=== PATIENT | male | born 1980 | race Caucasian/White ===

== ENCOUNTER 2024-10-22 14:24 | Emergency (ER) | payer SELFPAY ==
--- NOTE | 2024-10-22 14:42 | PD.EDMEDCL ---
ED Medical Clearance RME/HPI General Stated complaint: MEDICAL CLEARANCE Time Seen by Provider: 10/22/24 14:32 Arrival date/time: 10/22/24 14:24 RME / HPI RME / HPI Narrative: 44 year old male presented to the ED BIB [facility] for medical clearance prior to incarceration. Upon arrival, the patient reported acute onset shortness of breath, chest pain radiating to the left arm and left side of the neck, and [id number] back pain. Symptoms began approximately one hour prior to arrival. The patient described the chest discomfort as pressure-like and associated with a sensation of syncope stating, I feel like I'm going to pass out. He also complains of associated chills, diaphoresis, and a non-productive cough. He denied any subjective fever. 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 He denies recent trauma, similar previous episodes, or known cardiac history. Related Information Allergies Allergy/AdvReac Type Severity Reaction Status Date / Time meperidine (From Demerol) Allergy Verified 10/22/24 16:55 Review of Systems Review of Systems Narrative Review of Systems: GEN: No fever, + chills, no weight loss EYES: No discharge, no visual changes, no pain HEENT: No ear pain, no congestion, no sore throat PULM: + shortness of breath, +cough, no congestion CV: + chest pain, no palpitations GI: No nausea, no vomiting, no diarrhea, no pain, no constipation : No frequency, no urgency, no dysuria MUSC/SKEL: No joint pain, + back pain SKIN: No rash PSYCH: No hallucinations, no depression HEME/LYMPH: No easy bleeding or bruising tendencies NEURO: No weakness, no headache ED Exam Narrative Physical exam: GENERAL APPEARANCE: Unkempt, answering questions appropriately, oriented x 4, well-developed, well-nourished, no acute distress HEENT: Normocephalic, atraumatic; pupils equal, round, reactive to light; EOMI; mucous membranes pink, moist; oropharynx clear NECK: Supple LUNGS: CTABL; no wheezes, no rales, no rhonchi HEART: Regular rate, regular rhythm; normal S1, S2; no murmurs ABDOMEN: non distended; normal BS; soft, no tenderness, no guarding, no rebound; no masses, no organomegaly, no hernia BACK: no CVA tenderness EXTREMITIES: Strength 3/5 bilateral upper extremities, old well healed surgical scar on the left forearm. atraumatic; no edema NEUROLOGIC: Awake, alert, answering questions appropriately, oriented x4; cranial nerves II-XII grossly intact; recenterer strength 3/5 bilateral upper extremities PSYCHIATRIC: appropriate mood and affect SKIN: warm, dry, normal color; no rashes Course Quality Measures none Orders Category Date Time Status EKG (ED ONLY) *Do not use* NOW Care 10/22/24 15:04 Completed EKG (ED Only) Stat Exams 10/22/24 15:04 Draft CBC Stat Lab 10/22/24 15:26 Completed CMP [Comprehensive Metabolic Panel] Stat Lab 10/22/24 15: Completed Troponin I Stat Lab 10/22/24 15:26 Completed Acetaminophen Tab [Tylenol ES Tab] Med 10/22/24 16:48 Discontinued 1,000 mg PO X1 ONE Vital Signs Vital signs: Vital Signs Temperature 98.6 F 10/22/24 15:12 Pulse Rate 86 10/22/24 15:12 Respiratory Rate 20 10/22/24 15:12 Blood Pressure 181/99 H 10/22/24 15:12 Pulse Oximetry (%) 100 10/22/24 15:12 Oxygen Delivery Method Room Air 10/22/24 15:12 Pulse ox is 100% on room air which is adequate. Medical Clearance MDM Narrative MDM Narrative:: Dina Fairbanks am scribing for and in the presence of Dr. Del Real. Patient data External records reviewed:: [facility] previous records (Per EMR review, no previous ED visits ) Clinical information provided by:: patient and law enforcement Social determinants that could affect healthcare access:: none Patient has the following chronic illnesses:: Hx of shoulder surgery How is presenting disease/condition affected by chronic disease/condition?: exacerbated by Evaluation data The following diagnostics were reviewed and interpreted by me:: lab results and EKG tracing(s) Lab and/or radiology exams considered but not ordered:: None Interpretation Summary: EKG interpreted by me: sinus rhythm, rate 92, normal axis, normal intervals, no evidence of acute ischemia Medications / Prescriptions Medications or Prescriptions considered but not ordered:: None Medication administrations:: Medication Administration History Discontinued Medications Acetaminophen (Acetaminophen 500 Mg Tablet) 1,000 mg PO X1 ONE Stop: 10/22/24 16:49 See above Consultations Consultation(s) initiated? (list below): No Diagnosis Medical Clearance Differential Diagnosis: other (NV, angina, sepsis, viral illness, musculoskeletal pain ) Most likely diagnosis given after review of the tests above:: Chest palacio elevated blood pressure chronic upper extremity pain Admission Indicated Admission indicated?: not indicated Admission Request Was there a request for admission?: No Disposition Plan Disposition Plan: Discharge Discharge Attestation Discharge Attestation: The patient and all family members were given an opportunity to ask questions and understood the discharge instructions. Discharge instructions specifically effects, indications for sooner follow up or return to the emergency department, and the expected course of current diagnosis. Patient condition: Stable Discharge Plan Plan Patient Disposition: Senior Living/Court/Law Discharge Disposition comment: Okay to book Prescriptions/Referrals Referrals: No Primary/Family,Physician [Primary Care Provider] - In 1 week Problem List Clinical Impression: Chest pain, Elevated blood pressure reading, Chronic upper extremity pain, Chronic neck pain Patient/Caregiver Discharge Instructions Education Materials: ED Chest Pain, Uncertain Cause, ED Back and Neck Pain, General Print Language: [place]
--- NOTE | 2024-10-22 15:04 | EKG_ITS ---
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
[2024-10-22 15:12] VITALS: BP 181/106; BP 181/99; PULSE 86; RESP 20; TEMP 37; O2SAT 100
[2024-10-22 15:33] LABS: Basophils % (Auto) 0 % (0-2.5); Eosinophils # (Auto) 0.1 Thou/mm3 (0.0-0.5); Eosinophils % (Auto) 2 % (0-10); Hematocrit 39.7 % (41.0-53.0); Hemoglobin 13.7 g/dL (13.5-16.0); Immature Granulocytes % (Auto) 0 % (0-0); Immature Granulocytes Auto 0.02 Thou/mm3 (0.00-0.00); Lymphocytes # (Auto) 1.2 Thou/mm3 (1.0-4.8); Lymphocytes % (Auto) 18 % (10-50); Mean Corpuscular HGB Conc 34.5 g/dl (31.0-37.0); Mean Corpuscular Hemoglobin 31.4 pg (25.0-35.0); Mean Corpuscular Volume 91 fL (80-100); Monocytes # (Auto) 0.5 Thou/mm3 (0.0-0.8); Monocytes % (Auto) 8 % (0-12); Neutrophils # (Auto) 4.6 Thou/mm3 (1.8-7.7); Neutrophils % (Auto) 72 % (37-80); Nucleated Red Blood Cell % 0 /100 WBC (0); Platelet Count 141 Thou/mm3 (140-440); RDW Standard Deviation 39.8 fL (35.1-43.9); Red Blood Count 4.36 Miln/mm3 (4.50-5.90); White Blood Count 6.5 Thou/mm3 (3.8-10.6)
[2024-10-22 15:54] LABS: Alanine Aminotransferase 36 U/L (10-49); Albumin, Serum 4.1 gm/dL (3.5-5.0); Albumin/Globulin Ratio 1.8 (1.2-2.2); Alkaline Phosphatase 102 U/L (46-116); Anion Gap 10 (7-16); Aspartate Amino Transferase 28 U/L (0-34); BUN/Creatinine Ratio 17 Ratio (12-20); Bilirubin,Total 0.4 mg/dL (0.3-1.2); Blood Urea Nitrogen 12 mg/dL (9-23); Calcium 8.9 mg/dL (8.3-10.6); Calcium (Corrected) 8.9 mg/dL (8.5-10.1); Carbon Dioxide 25.6 mMol/L (20.0-31.0); Chloride 106 mMol/L (98-107); Creatinine (Component) 0.7 mg/dL (0.6-1.3); Globulin 2.3 gm/dL (2.3-3.5); Glucose 110 mg/dL (74-106); Osmolality,Calculated 283 (275-295); Sodium 142 mMol/L (136-145); Total Protein 6.4 gm/dL (5.7-8.2); Troponin I < 0.020 ng/mL (0.0-0.045); eGFR > 60 See Note
[2024-10-22 16:20] VITALS: BP 149/98; PULSE 86; RESP 20; O2SAT 98
== END 2024-10-22 17:02 ==
PROVIDERS: Emergency Provider Emergency Medicine
DX: Z02.89 Encounter for other administrative examinations (principal); R07.9 Chest pain, unspecified; M54.2 Cervicalgia; G89.29 Other chronic pain; R03.0 Elevated blood-pressure reading, without diagnosis of hypertension
CPT/HCPCS: 36415; 80053; 84484; 85025; 93005; 99283

== ENCOUNTER 2024-11-09 12:50 | Emergency (ER) | payer OTHER, SELFPAY ==
[2024-11-09 12:53] VITALS: BMI 23.6
[2024-11-09 12:55] VITALS: BP 163/93; PULSE 53; RESP 20; TEMP 36.5; O2SAT 99
[2024-11-09 13:50] VITALS: BP 160/87; PULSE 64; RESP 18; TEMP 36.6; O2SAT 100
--- NOTE | 2024-11-09 13:56 | XR_ITS ---
Examination: CT abdomen and pelvis without contrast. Coronal 3-D reconstructions. Sagittal 2-D reconstructions. Date and time of exam:November 09, 2024 1406 hours INDICATIONS: Diffuse abdominal pain beginning 2 hours ago CTDI: vol (mGy): 7.18 DLP: (mGycm): 390 Technique: Axial images of the abdomen have been obtained, 3 mm slice thickness Intravenous contrast material has not been administered. Low dose protocols were performed. One or more of the following dose reduction techniques were used; automated exposure control, adjustment of the mA and/or KV according to patient size, use of iterative reconstruction technique. Findings: 3 mm pulmonary nodule in left lower lobe No pneumonia or pulmonary edema Cystic mass tail of the pancreas, 8 cm, most consistent with pancreatic pseudocyst No current pancreatitis Negative for gallstones No adrenal mass No renal or ureteral calculi, no hydronephrosis Normal appendix No prostatic megaly Urinary bladder wall thickening up to 4 mm Moderate disc narrowing L3-L4 Mild right and moderate left hip osteoarthritis , Partial visualization right intramedullary femoral gurdeep IMPRESSION: 3 mm pulmonary nodule left lower lobe, consider PA and lateral chest follow-up Cystic mass tail of the pancreas, 8 cm, most consistent with pancreatic pseudocyst No current pancreatitis Normal appendix No bowel obstruction or diverticulitis Moderate degenerative disc disease L3-L4
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
[2024-11-09 14:39] LABS: Basophils % (Auto) 0 % (0-2.5); Eosinophils % (Auto) 0 % (0-10); Hematocrit 42.2 % (41.0-53.0); Immature Granulocytes % (Auto) 1 % (0-0); Immature Granulocytes Auto 0.07 Thou/mm3 (0.00-0.00); Lymphocytes # (Auto) 1.2 Thou/mm3 (1.0-4.8); Lymphocytes % (Auto) 9 % (10-50); Mean Corpuscular HGB Conc 35.5 g/dl (31.0-37.0); Mean Corpuscular Hemoglobin 30.7 pg (25.0-35.0); Mean Corpuscular Volume 87 fL (80-100); Monocytes # (Auto) 0.8 Thou/mm3 (0.0-0.8); Monocytes % (Auto) 6 % (0-12); Neutrophils # (Auto) 12.4 Thou/mm3 (1.8-7.7); Neutrophils % (Auto) 85 % (37-80); Nucleated Red Blood Cell % 0 /100 WBC (0); Platelet Count 211 Thou/mm3 (140-440); Red Blood Count 4.88 Miln/mm3 (4.50-5.90); White Blood Count 14.5 Thou/mm3 (3.8-10.6)
[2024-11-09 14:58] LABS: Alanine Aminotransferase 34 U/L (10-49); Albumin, Serum 4.5 gm/dL (3.5-5.0); Albumin/Globulin Ratio 2.4 (1.2-2.2); Alkaline Phosphatase 88 U/L (46-116); Anion Gap 11 (7-16); Aspartate Amino Transferase 19 U/L (0-34); BUN/Creatinine Ratio 15 Ratio (12-20); Bilirubin,Total 0.8 mg/dL (0.3-1.2); Blood Urea Nitrogen 12 mg/dL (9-23); Calcium 9.1 mg/dL (8.3-10.6); Calcium (Corrected) 9.1 mg/dL (8.5-10.1); Carbon Dioxide 28.3 mMol/L (20.0-31.0); Chloride 104 mMol/L (98-107); Creatinine (Component) 0.8 mg/dL (0.6-1.3); Estimated Creatinine Clearance 120.3 mL/min (>60); Globulin 1.9 gm/dL (2.3-3.5); Glucose 114 mg/dL (74-106); Lipase 64 U/L (12-53); Osmolality,Calculated 285 (275-295); Potassium 3.7 mMol/L (3.4-5.1); Sodium 143 mMol/L (136-145); Total Protein 6.4 gm/dL (5.7-8.2); eGFR > 60 See Note
[2024-11-09 16:04] VITALS: BP 141/93; PULSE 73; RESP 18; TEMP 36.5; O2SAT 98
[2024-11-09 17:48] VITALS: BP 153/93; PULSE 84; RESP 16; TEMP 36.6; O2SAT 99
== END 2024-11-09 17:48 ==
PROVIDERS: Emergency Provider Emergency Medicine
DX: K86.3 Pseudocyst of pancreas (principal); M51.369 Other intervertebral disc degeneration, lumbar region without mention of lumbar back pain or lower extremity pain
CPT/HCPCS: 36415; 74176; 80053; 83690; 85025; 99284

== ENCOUNTER 2024-12-24 18:51 | Emergency (ER) | payer MEDICAID, SELFPAY ==
[2024-12-24 19:36] VITALS: BP 154/86; PULSE 103; RESP 20; TEMP 37; O2SAT 96; BMI 28.4
[2024-12-24] MEDS: DIAZEPAM 5 MG TABLET 10 MG PO (20:13)
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
== END 2024-12-24 20:30 | disposition home or self-care (01) ==
LOC: SERX 20:16
PROVIDERS: Emergency Provider Emergency Medicine
DX: F19.239 Other psychoactive substance dependence with withdrawal, unspecified (principal); F41.9 Anxiety disorder, unspecified
CPT/HCPCS: 99283; A9270

== ENCOUNTER 2025-02-18 16:46 | Emergency (ER) | payer MEDICAID, SELFPAY ==
[2025-02-18 16:46] VITALS: BMI 24.3
[2025-02-18 17:36] VITALS: BP 110/65; PULSE 93; RESP 18; TEMP 36.8; O2SAT 98
--- NOTE | 2025-02-18 17:47 | XR_ITS ---
Examination: CT lumbar spine, without contrast. 2-D sagittal reconstructions. 2-D coronal reconstructions. 3-D reconstructions. Date and time of exam:February 18, 2025, 1822 hrs. Indications: Back pain years, worse today. CTDI: vol (mGy):19.8. DLP: (mGycm):605. Technique: Multiple 1.25 mm axial sections of the lumbar spine without intravenous have been obtained. 2-D sagittal and coronal reconstructions have been obtained. 3-D reconstructions have been obtained. Low dose protocols were performed. One or more of the following dose reduction techniques were used; automated exposure control, adjustment of the mA and/or KV according to patient size, use of iterative reconstruction technique. Findings: Adequate alignment lumbar vertebral bodies on the lateral view. No lumbar fracture. No spondylolisthesis. Advanced disc narrowing L3-L4. No spondylolisthesis. L5-S1 no disc protrusion L4-L5 no disc protrusion. L3-L4 moderate to severe overall spinal stenosis, axial image 71, 3 mm central lumbar disc bulge, facet arthropathy and thickening of ligamentum flavum with moderate left mild right L3 ganglionic compression Impression: No acute lumbar fracture. Advanced degenerative disc disease L3-L4. L3-L4 moderate to severe overall spinal stenosis as above, including moderate left mild right L5 ganglionic compression Consider MRI lumbar spine without contrast follow-up
--- NOTE | 2025-02-18 17:47 | XR_ITS ---
Examination: CT cervical spine without contrast 2-D sagittal reconstructions 2-D coronal reconstructions 3-D reconstructions. Exam date and time:February 18, 2025, 1819 hrs. Indications: Neck pain years, worse today. CTDI:vol (mGy) 15.5. DLP: (mGycm) 389. Technique: Multiple 2 mm axial sections of the cervical spine have been obtained. The coronal and sagittal reconstructions have been obtained. 3-D reconstructions have been obtained. Low dose protocols were performed. One or more of the following dose reduction techniques were used; automated exposure control, adjustment of the mA and/or KV according to patient size, use of iterative reconstruction technique. Findings: Axial sections demonstrate intact base of the skull. C1 exhibit satisfactory relationship to the odontoid. No acute cervical vertebral body fracture seen. Alignment posterior spinous processes satisfactory. Advanced degenerative disc disease C5-C6, C6-C7 C5-C6 2 mm central osteophyte disc complex, advanced bilateral neural foraminal stenosis C6-C7 advanced right moderate left neural foraminal stenosis Impression: No acute cervical fracture. Advanced degenerative disc disease C5-C6, C6-C7 MRI cervical spine follow-up, as clinically warranted, would best assess for acquired soft tissue spinal stenosis
--- NOTE | 2025-02-18 17:47 | XR_ITS ---
Examination: CT thoracic spine, without contrast. 2-D sagittal reconstructions. 2-D coronal reconstructions. 3-D reconstructions. Date and time of exam:Since yesterday probably thousand 25, 1822 hrs. Indications: Mid back pain years, more severe the last several weeks CTDI: vol (mGy):26.22 DLP: (mGycm):1081 Technique: Multiple 1.25 mm axial sections of the thoracic spine without intravenous contrast. have been obtained. 2-D sagittal and coronal reconstructions have been obtained. 3-D reconstructions have been obtained. Low dose protocols were performed. One or more of the following dose reduction techniques were used; automated exposure control, adjustment of the mA and/or KV according to patient size, use of iterative reconstruction technique. Findings: Satisfactory alignment thoracic vertebral bodies. No thoracic vertebral body compression fracture. Pedicles, laminae, transverse and posterior spinous processes intact Mild to moderate diffuse thoracic disc narrowing. Soft tissue settings demonstrate no focal thoracic disc protrusion Impression: [id number] diffuse thoracic degenerative disc disease No focal thoracic disc protrusion, however, MRI thoracic spine without contrast follow-up would best assess for acquired soft tissue spinal stenosis
--- NOTE | 2025-02-18 17:48 | EDRME_ITS ---
Rapid Medical Screening Exam [facility] Arrival date/time: 02/18/25 16:46 44-year-old male currently on Suboxone presents to the emergency department today for complaints of neck pain and back pain after lifting heavy objects yesterday. Chief Complaint: Back Pain/Injury Time Seen by Provider: 02/18/25 17:21 Vital signs: Vital Signs Temperature 98.3 F 02/18/25 17:36 Pulse Rate 93 02/18/25 17:36 Respiratory Rate 18 02/18/25 17:36 Blood Pressure 110/65 02/18/25 17:36 Pulse Oximetry (%) 98 02/18/25 17:36 Oxygen Delivery Method Room Air 02/18/25 17:36
[2025-02-18] MEDS: KETOROLAC INJ 60 MG/2 ML VIAL 30 MG IM (17:55)
--- NOTE | 2025-02-18 19:17 | PD.EDBACK ---
ED Back Injury Pain RME/HPI General Chief Complaint: Back Pain/Injury Stated Complaint: NECK AND BACK PAIN Time Seen by Provider: 02/18/25 17:21 Arrival date/time: 02/18/25 16:46 RME / HPI RME / HPI Narrative: 02/18/25 16:46 44-year-old male currently on Suboxone presents to the emergency department today for complaints of neck pain and back pain after lifting heavy objects yesterday. ----- See [facility] for Dr. House's HPI documentation. Related Data Previous Rx's ?Medication ?Instructions ?Recorded cyclobenzaprine 10 mg tablet 10 mg PO Q8H PRN muscle spasm #30 02/18/25 tabs lidocaine 5 % topical patch 2 patch topical QDAY PRN pain #30 02/18/25 (Lidoderm) ea Allergies Allergy/AdvReac Type Severity Reaction Status Date / Time meperidine (From Demerol) Allergy Verified 02/18/25 16:48 Review of Systems Review of Systems Systems Reviewed: All systems reviewed, normal except as documented Past Medical History Past Medical History CARDIAC: Positive Hypertension; Negative Congestive Heart Failure RESPIRATORY: Negative Chronic Obstructive Pulmonary Disease (COPD) GENITOURINARY: Negative Renal Disease ENDOCRINE: Negative Diabetes Mellitus Type 1 or Diabetes Mellitus Type 2 Social History SMOKING STATUS: Never smoker ED Exam Narrative Physical exam: See [facility] for Dr. House's physical exam documentation. Course Quality Measures none Orders Category Date Time Status CT cervical spine wo con Stat Exams 02/18/25 17:[address] lumbar spine wo con Stat Exams 02/18/25 17:[address] thoracic spine wo con Stat Exams 02/18/25 17:47 Completed Ketorolac Inj [Toradol Inj] Med 02/18/25 17:46 Discontinued 30 mg IM X1 ONE Vital Signs Vital signs: Vital Signs Temperature 98.3 F 02/18/25 17:36 Pulse Rate 93 02/18/25 17:36 Respiratory Rate 18 02/18/25 17:36 Blood Pressure 110/65 02/18/25 17:36 Pulse Oximetry (%) 98 02/18/25 17:36 Oxygen Delivery Method Room Air 02/18/25 17:36 Back Pain / Injury [facility] Narrative [facility] Narrative:: This section includes all my notes and documentations, including HPI, PE, and ED course. Lamont House MD HPI: 44yo male here neck pain and back pain. Patient moved items in and out of storage yesterday when the pain [id number]. No falls or specific injuries. Has trouble localizing the pain further. Has chronic left foot drop. No worsening or new motor deficits. No loss of control of bladder or bowels. No saddle numbness. No numbness or tingling. No other complaints. ROS: All negative except as documented in HPI. Physical Exam: General: Alert and oriented. No acute distress when remaining still. Eyes: Conjunctivae and lids clear. ENT: No nasal congestion. Neck: No tenderness. No limited ROM. Heart: RRR. Lungs: No respiratory distress. Good air movement. No rhonchi, wheezing, rales. Abdomen: Soft and nontender. Normal bowel sounds. No distension. No rebound or guarding. Back: No tenderness. No limited ROM. Straight leg raise negative bilaterally. Skin: Warm and dry. Neuro: Alert and oriented X 3. No peripheral motor deficits. I reviewed all diagnostic test results. My review of the CT cervical spine report is NAD. My review of the CT thoracic spine report is NAD. My review of the CT lumbar spine report is NAD. At this point, diagnoses include: Back sprain Recommended outpatient management. Based on my best medical judgment, made decision no further evaluation or treatment indicated at this time. Patient understands and agrees to the discharge instructions customized and printed, see below. Discharge Instructions from Dr. House printed for you: 1. After extensive evaluation, there is no emergency. Such as broken bone or new spinal cord compression (other than your chronic left foot drop). 2. You sustained back sprain/strain. See attached handout. 3. The swelling and inflammation from your injury yesterday can constrict nerves and cause numbness and tingling. 4. Try to resume your normal activity. Prolonged inactivity is terrible for your body. 5. Apply ice for 20 minutes every 2-3 hours today and tomorrow. 6. Toradol 10 mg every 6-8 hours today and tomorrow to decrease inflammation then as needed. And cyclobenzaprine as needed. 7. See a private doctor on 02/19/2025 for recheck and further care. Ask to review all test results and official radiology reports, to make sure you receive all necessary follow-ups and monitoring. Ask for help until you are completely better. Ask for help with more care not available here in the ER, such as MRI imaging studies and referrals to see specialists. 8. Seek immediate medical care with worsening, new paralysis, or with any concerns. Lamont House MD Patient data External records reviewed:: [facility] previous records (Per chart review, patient has no relevant previous ED visits.) Clinical information provided by:: patient Social determinants that could affect healthcare access:: none Patient has the following chronic illnesses:: HTN How is presenting disease/condition affected by chronic disease/condition?: uneffected by Evaluation data The following diagnostics were reviewed and interpreted by me:: radiology exam(s) Lab and/or radiology exams considered but not ordered:: none Interpretation Summary: I reviewed all diagnostic test results. My review of the CT cervical spine report is NAD. My review of the CT thoracic spine report is NAD. My review of the CT lumbar spine report is NAD. Medications / Prescriptions Medications or Prescriptions considered but not ordered:: none Medication administrations:: Medication Administration History Discontinued Medications Ketorolac Tromethamine (Ketorolac Inj 60 Mg/2 Ml Vial) 30 mg IM X1 ONE Stop: 02/18/25 17:47 Last Admin: 02/18/25 17:55 Dose: 30 mg Documented By: OA Toradol IM ordered by ESTEFANIA Consultations Consultation(s) initiated? (list below): No Diagnosis Differential diagnosis back pain/injury: lumbar radiculopathy, sciatica, strain of lumbar region, thoracic back pain and discitis Most likely diagnosis given after review of the tests above:: Back sprain Admission Indicated Admission indicated?: not indicated Explain why admission is indicated or not indicated:: With no condition needing emergent intervention, there was no indication for admission. Admission Request Was there a request for admission?: No Disposition Plan Disposition Plan: Discharge Discharge Attestation Discharge Attestation: The patient and all family members were given an opportunity to ask questions and understood the discharge instructions. Discharge instructions specifically effects, indications for sooner follow up or return to the emergency department, and the expected course of current diagnosis. Patient condition: Stable Discharge Plan Plan Patient Disposition: HOME (Self Care) Prescriptions/Referrals Prescriptions/Med Rec: New cyclobenzaprine 10 mg tablet 10 mg PO Q8H PRN (Reason: muscle spasm) Qty: 30 0RF lidocaine [Lidoderm] 5 % adhesive patch,medicated 2 patch topical QDAY PRN (Reason: pain) Qty: 30 0RF Rx Instructions: leave on most painful area for up to 12 hrs Referrals: Adiel Dye MD [Primary Care Provider, Family Practice] - In 1 week Problem List Clinical Impression: Back sprain Patient/Caregiver Discharge Instructions Discharge Activity: activity as tolerated Education Materials: ED Back Sprain/Strain Additional Instructions: Discharge Instructions from Dr. House printed for you: 1. After extensive evaluation, there is no emergency. Such as broken bone or new spinal cord compression (other than your chronic left foot drop). 2. You sustained back sprain/strain. See attached handout. 3. The swelling and inflammation from your injury yesterday can constrict nerves and cause numbness and tingling. 4. Try to resume your normal activity. Prolonged inactivity is terrible for your body. 5. Apply ice for 20 minutes every 2-3 hours today and tomorrow. 6. Toradol 10 mg every 6-8 hours today and tomorrow to decrease inflammation then as needed. And cyclobenzaprine as needed. 7. See a private doctor on 02/19/2025 for recheck and further care. Ask to review all test results and official radiology reports, to make sure you receive all necessary follow-ups and monitoring. Ask for help until you are completely better. Ask for help with more care not available here in the ER, such as MRI imaging studies and referrals to see specialists. 8. Seek immediate medical care with worsening, new paralysis, or with any concerns. Print Language: Polish Stand Alone Forms: Norma Award Info., Patient Portal Info Letter
== END 2025-02-18 19:35 | disposition home or self-care (01) ==
PROVIDERS: Emergency Provider Emergency Medicine; PCP Family Medicine
DX: S33.5XXA Sprain of ligaments of lumbar spine, initial encounter (principal); S23.3XXA Sprain of ligaments of thoracic spine, initial encounter; S13.4XXA Sprain of ligaments of cervical spine, initial encounter; X50.0XXA Overexertion from strenuous movement or load, initial encounter
CPT/HCPCS: 72125; 72128; 72131; 80307; 81001; 96372; 99283; J1885